=== PATIENT | male | born 1960 | race Hispanic/Latino ===

== ENCOUNTER 2025-02-17 06:42 | Observation (INO) | payer OTHER ==
[2025-02-15 10:22] LABS: IMMATURE GRANULOCYTE ABSOLUTE 0.02 K/uL (0-1); NUCLEATED RED BLOOD CELLS 0.0 % (0.0-0.19); PLATELET COUNT (AUTO) 328 K/uL (130-400); RED BLOOD CELL COUNT(AUTO) 4.17 MIL/uL (4.50-6.20); RED CELL DISTRIBUTION WIDTH 14.4 % (11.0-15.5); WHITE BLOOD COUNT (AUTO) 8.8 K/uL (4.8-10.8)
--- NOTE | 2025-02-15 10:29 | EKG ---
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
[2025-02-15 10:31] LABS: INR 1.0 (0.85-1.15)
[2025-02-15 10:34] LABS: CREATININE 0.9 mg/dL (0.5-1.3); GLOMERULAR FILTR. RATE CALC 97.0 mL/min (>90); GLUCOSE,RANDOM 99.0 mg/dL (70-105); SODIUM SERUM 139.0 mmol/L (136-145); UREA NITROGEN, BLOOD 14.0 mg/dL (7-18)
[2025-02-15 11:01] VITALS: BP 135/79; PULSE 76; RESP 18; TEMP 98
--- NOTE | 2025-02-16 04:15 | HMCIMG ---
EXAM: CR Chest, 2 views CLINICAL HISTORY: Preoperative evaluation. COMPARISON: None provided. FINDINGS: The lungs show no infiltrates or other acute findings. No pleural effusion or pneumothorax. The cardiomediastinal silhouette is within normal limits. Status poststernotomy. No acute osseous abnormality. IMPRESSION: No acute cardiopulmonary process is evident. /Lamar
[2025-02-17] VITALS (15 sets, daily range): BP systolic 128–166; BP diastolic 65–111; PULSE 64–77; RESP 14–18; TEMP 97.5–98.1; O2SAT 97
[~2025-02-17] VITALS: Ht 177.8 cm; Wt 152.0 kg
[~2025-02-17 06:42] MED LIST: ALLO100T PO; ASPI-1197 PO; ATOR40TA69 PO; ENAL-91 PO; EZET10TA48 PO; FURO20TA4 PO; METF-446 PO; METO-391 PO; OMEGA-3-ACID PO; TAMS-55 PO
[2025-02-17] MEDS ORDERED: LIDOCAINE HCL 400MG/20ML VIAL ONE ×2 (09:02→09:16)
[2025-02-17] MEDS ORDERED: SODIUM BICARB 50MEQ 50ML VIAL 0 ML ONE (09:02)
[2025-02-17] MEDS ORDERED: IOHEXOL 350 MG/ML 100ML INFUS..BTL IV ONE ×2 (09:03→11:13)
[2025-02-17] MEDS ORDERED: NITROGLYCERIN 50MG VIAL ONE (09:03)
[2025-02-17] MEDS ORDERED: HEParin-NS 1,000 UNIT/500 ML 1,000 ML IV ONE (09:03)
[2025-02-17] MEDS ORDERED: MIDAZOLAM HCL 1 MG/ML 2ML VIAL ONE (09:21)
[2025-02-17] MEDS: 0.9%NACL 1000ML 1,000 ML IV SCH ×2 (09:41→14:33)
[2025-02-17] MEDS ORDERED: BIVALIRUDIN 250 MG/VIAL IV ONE ×2 (11:09→11:18)
[2025-02-17] MEDS ORDERED: HEParin-NS 1,000 UNIT/500 ML 500 ML IV ONE (11:18)
[2025-02-17] MEDS ORDERED: ASPIRIN 81MG CHEW TAB ONE (12:05)
[2025-02-17] MEDS ORDERED: NITROGLYCERIN 0.4 MG SL TAB SL PRN ×2 (12:30→14:00)
[2025-02-17] MEDS ORDERED: DEXTROSE 50%-WATER 50 ML DISP.SYRIN IV PRN ×2 (12:30→14:00)
[2025-02-17] MEDS ORDERED: GLUCAGON 1MG KIT 1 MG ML IM PRN ×2 (12:30→14:00)
--- NOTE | 2025-02-17 12:38 | PRN ---
PROCEDURES: 1. Right common femoral arterial sheath placement. 2. Selective coronary angiogram. 3. Left heart catheterization. 4. Left ventriculogram. 5. Right common femoral vein sheath placement 6. Right heart catheterization falling protocol with cardiac outputs and O2 saturation run 7. Intravascular ultrasound of left main artery 8. Angioplasty to left main artery with the use of a 2.25 mm x 12 mm balloon 9. Lithotripsy angioplasty to left main artery with the use of a 3.5 mm x 12 mm balloon for a total of 12 treatments up to six atmospheres of the proximal and mid left main artery 10. Stent placement to proximal and mid left main artery with the use of a 5 mm x 12 mm julia [place] stent deployed to 5.25 mm 11. Perclose closure system for arteriotomy site and Vascade closure system for venous access site INDICATION: Unstable angina Moderate-severe aortic stenosis Abnormal stress test for multi zone ischemia History of coronary artery disease and a history of CABG x3 2015 with a dawson- lad, SVG-PDA, SVG-obtuse marginal branch three DESCRIPTION OF PROCEDURE: The patient was brought to the catheterization suite and prepped and draped in sterile fashion. IV was started, and not already in place and both groins were exposed for arterial access. 1% lidocaine was used for local anesthesia and then a micropuncture kit was used to gain access once free-flowing blood was seen, modified Seldinger technique was utilized to place a 6 [place] sheath into the right common femoral artery. Next the venous access was obtained using same technique and a seven [place] sheath was placed in the right common femoral vein. Next, preformed JL4 and JR 4 catheters were used to selectively engage the [place] coronary vessels and multiple hand contrast injections were performed in different views to define the coronary anatomy. The JR4 catheter was used to selectively engage the saphenous vein graft anastomosed to obtuse marginal branch 3. The JR4 catheter was then used to adequately image the left subclavian artery and then an exchange length J wire was then used to exchange catheters and an IMT catheter was then placed into the left subclavian artery and used to engage the left internal mammary artery. Next a multipurpose one catheter was then used to selectively engage the saphenous vein graft anastomosed into the PDA. Next a the end of the case, a 6 [place] angled pigtail was used to cross the aortic valve. Pressure measurements were obtained. Next a right heart catheterization was performed following foll owing protocol and O2 saturations were performed as well of the RA RV and PA. Cardiac outputs were also performed. Simultaneous pressure measurements were obtained of the LVEDP as well as a pulmonary capillary wedge. Next pullback method was done after a hand injection left ventriculogram was performed. Right heart catheter was removed as well. See below. FINDINGS: The left main artery bifurcates in the LAD and left circumflex and a severely calcified with a 95% proximal mid lesion noted. The LAD is occluded after a large long diagonal branch 1. Dawson-lad is noted to be patent. The left circumflex artery in his body gives rise to obtuse marginal branch one and two which are free of any significant disease. Obtuse marginal branch 3. Has a 50% proximal stenosis and the saphenous vein graft anastomosed into the obtuse marginal branch 3. Is providing retrograde filling non all the way to the aorta and upon engagement of saphenous vein graft off the aorta anastomosed into obtuse marginal branch 3. It occludes in its mid segment. It is diffusely diseased in its proximal segment. The right coronary artery and its proximal segment is 90% stenosed and occluded in its distal segment at 100%. The saphenous vein graft anastomosed into PDA is noted to be patent. INTERVENTIONAL REPORT: After images were reviewed a diagnostic study was completed it was felt intervention should be attempted to [place] left main artery. Therefore a six [place] JL4 catheter was then used to selectively engage the [place] coronary sy stem. Next a 0.014 in choice PT extra-support wire was then placed in distal ongoing diagonal branch 1. In its distal segment. Next a 2.25 mm balloon was then used to pre dilate the proximal and mid left main artery up to 2.49 mm. Next shockwave 3.5 mm x 12 mm balloon was then placed into the proximal and mid left main artery and deployed up to 3.4 mm or six atmospheres for a total of 12 treatments. Next intravascular ultrasound was performed of the left main artery revealing this to be at least a 5.25-5.50 mm vessel. Therefore a 5 mm x 12 mm julia [place] stent was then placed in the proximal and mid LAD inappropriate placement and location this was then deployed to 16 atmospheres for approximately 30 seconds or 5.25 mm. Follow-up contrast injection with no evidence of dissection or perforation just a little bit of residual stenosis of proximally 10% of the top of stent but with EMPERATRIZ three flow noted. At end of case sheaths were removed with a Perclose device removing arterial sheath and a Vascade closure system for venous sheath. No complications occurred. RECOMMENDATIONS: Patient will stay in the hospital overnight and receive IV fluids Discharge home in a.m. if labs remain normal Follow up with Dr. Vegas in 2-4 weeks BREANNA VEGAS MD Feb 17, 2025 12:38
--- NOTE | 2025-02-17 13:45 | NUR ---
REPORT GIVEN TO BALDEV RN 2ND FLOOR
[2025-02-17] MEDS ORDERED: PoTASSium chl 10% ELIXIR 20MEQ 20 MEQ/15 ML UDCUP PO PRN (14:00)
[2025-02-17] MEDS ORDERED: LACTULOSE 20 GM/30 ML UDCUP PO PRN (14:00)
[2025-02-17] MEDS ORDERED: FAMOTIDINE 20MG VIAL IV PRN (14:00)
[2025-02-17] MEDS ORDERED: PoTASSium chloRIDE 10MEQ SR 10 MEQ/TAB TAB.SR.24H PO PRN (14:00)
[2025-02-17] MEDS ORDERED: guaiFENesin-DM 200/20MG 10ML PO PRN (14:00)
[2025-02-17] MEDS ORDERED: MAG/ALUM/SIMETH 30 ML UDCUP PO PRN (14:00)
--- NOTE | 2025-02-17 14:09 | HP ---
[facility] HISTORY AND PHYSICAL Date of Service: Feb 17, 2025 Time of Service: 13:58 PCP:Dr Desmond Rodriguez cardiologidt Dr Ascencion Antonio Admitting:, Dr Boone, Allergies: No Allergy Information Available, No Known Drug Allergies HISTORY OF PRESENT ILLNESS: [ Patient is 64 years old male with a past medical history of hypertension, Coronary Artery Disease, CABG x3, venous insufficient can see, diabetes, morbid obesity, triple-vessel disease, HLD, right and left carotid endarterectomy, who came to [facility] for elective left heart catheterization with Dr. Vegas. Patient underwent right common femoral artery sheath placement, right common femoral vein sheath placement, angioplasty to the left main artery with the use of 2.25 mm x 12 mm balloon, lithotripsy angioplasty to the left main artery with the use of a 3.5 mm x 12 mm balloon for a total of 12 treatments up to six atmospheres of the proximal and mid left main artery. Stent placement to the proximal and mid left main artery with the use of a 5 mm x 12 mm julia [place] stent deployed to 5.25 mm and Perclose closure system for arteriotomy site and Vascade closure system for venous access site today 02/17/[address] Ascencion Antonio from [facility] . Most recent vital signs temperature 97.5 pulse 64 respiration 14 blood pressure 142/84 patient is on room air satting 97%. Sodium 139 potassium 4.6 CO2 25 BUN 14 creatinine 0.9 GFR 97. WBC 8.8 hemoglobin 12 hematocrit 36.8 platelets 328. Chest x-ray negative. Patient will be admitted under hospitalist care for further evaluation/recommendation. As per tanning wheel filler if no abnormalities over the night patient is cleared to be discharged home tomorrow. We will continue to follow up patient. A.m. labs] REVIEW OF SYSTEMS CONSTITUTIONAL: Denies fevers, chills, or night sweats. No unintentional weight loss reported. NEUROLOGICAL: Denies headache, amaurosis fugax, motor weakness, sensory deficit, vertigo/spinning sensation, gait abnormalities, or tremors. ENT: No hearing loss, otalgia, otorrhea, rhinitis, rhinorrhea, hoarseness, or sore throat. CARDIOVASCULAR: Denies any exertional angina, dyspnea on exertion, orthopnea, p aroxysmal nocturnal dyspnea, palpitations, life-threatening arrhythmias, claudication. S/p left heart catheterization 02/17/2025 PULMONARY: Denies any shortness of breath, cough, phlegm/sputum, hemoptysis, pleuritic chest pain. SLEEP: Denies morning headaches, daytime somnolence or napping. Denies difficulty falling asleep, staying asleep, waking from sleep. Denies knowledge of snoring. GASTROINTESTINAL: Denies any type of dysphagia to either liquids or solids. Denies nausea, vomiting, pyrosis, early satiety, abdominal pain, diarrhea, co nstipation, or changes in stool consistency or caliber. Denies coffee-ground emesis, hematemesis, hematochezia, or melanotic stools. GENITOURINARY: Denies frequency, urgency, nocturia, hematuria or incontinence (Storage/Irritative symptoms.) Low urinary stream, straining to void, urinary intermittency or hesitancy, splitting of the voiding stream, terminal dribbling. ENDOCRINOLOGIC: Denies polyuria, polydipsia, polyphagia or heat/cold intolerances. HEMATOLOGIC: Denies thrombophilia/previous clots, or coagulopathy/bleeding disorders. ONCOLOGIC: Denies personal history of malignancy. DERMATOLOGIC: Denies rashes or pruritus. PSYCHIATRIC: Denies any suicidal or homicidal ideation. Denies hallucinations. PAST MEDICAL HISTORY: [ Hypertension, Coronary Artery Disease, venous insufficiency, diabetes, morbid obesity, triple-vessel disease, CHF] PAST SURGICAL HISTORY: [ CABG x3 2016, left and right carotid endarterectomy 2017 and 2016, right and left knee replacement ] PAST SOCIAL HISTORY: [ Patient quit smoking in 2016, patient quit drinking about four months ago he used to drinking to three beers every weekend. Patient denies any drug illicit ] FAMILY HISTORY: [ Patient lives at home with a girlfriend independent] Coded Allergies: No Known Drug Allergies (Unverified Allergy, Unknown, 02/17/25) PHYSICAL EXAM GENERAL APPEARANCE: The patient is awake, alert, and oriented, in no acute cardiopulmonary distress. NEUROLOGICAL: Cranial nerves II-XII grossly intact. Motor is 5/5 in bilateral upper and lower extremities proximal to distal. No sensory deficits. HEENT: Face is symmetric. Pupils are equal and reactive. Extraocular movements are intact. NECK: Supple. No JVD. No thyromegaly. No submental, submandibular, pre- /postauricular, occipital or supraclavicular lymphadenopathy. CHEST: Normal chest expansion. No Telemetry. LUNGS: Absence of any rales, rhonchi or any wheezing. CARDIOVASCULAR: Regular. S1 and S2 normal. No appreciable rubs, murmurs or gallops. ABDOMEN: Soft, nontender, and nondistended. There is no rebound, voluntary guarding, or rigidity. : Deferred. No Galaviz. EXTREMITIES: Non-edematous and not cyanotic. No clubbing. Good capillary refill. SKIN: No skin breakdown. Vital Sign (Last 24 Hours) 02/17/25 13:45 Pulse 67 Resp 14 B/P (MAP) 147/87 Pulse Ox 96 O2 Delivery Room Air FiO2 21 LABS: Laboratory: Test 02/17/25 06:54 Range/Units Whole Blood Glucose 100 70-110 MG/DL Current Medications Medications (Trade) Dose Ordered Sig/Johnny Route PRN Reason Start Time Stop Time Status Last Admin Dose Admin Dextrose (D50w) 50 ml AD PRN IV HYPOGLYCEMIA PROTOCOL 02/17/25 12:30 03/19/25 12:29 Dextrose (D50w) 50 ml AD PRN IV HYPOGLYCEMIA PROTOCOL 02/17/25 14:00 02/17/25 13:56 DC Glucagon (Glucagon 1mg Kit) 1 mg AD PRN IM HYPOGLYCEMIA PROTOCOL 02/17/25 12:30 03/19/25 12:29 Glucagon (Glucagon 1mg Kit) 1 mg AD PRN IM HYPOGLYCEMIA PROTOCOL 02/17/25 14:00 02/17/25 13:56 DC Hydralazine HCl (APRESOLine 20MG INJ) 10 mg Q20M PRN IV SBP ABOVE 160MMHG 02/17/25 12:30 03/19/25 12:29 Insulin Human Regular (humuLIN R 100 UNIT/ML 3ML) INSULIN SLIDING SCAL... ACHS SQ 02/17/25 16:30 02/17/25 13:56 DC Insulin Human Regular (humuLIN R 100 UNIT/ML 3ML) INSULIN SLIDING SCAL... ACHS SQ 02/17/25 16:30 03/19/25 16:29 Magnesium Sulfate 50 ml @ 0 mls/hr PROTOCOL PRN IV other 02/17/25 14:00 03/19/25 13:59 Metoprolol Tartrate (loprESSOR) 5 mg Q5M PRN IV Heart rate greater than 110 02/17/25 12:30 Nitroglycerin (Nitrostat) 0.4 mg AD PRN SL CHEST PAIN 02/17/25 12:30 03/19/25 12:29 Potassium Chloride 100 ml @ 100 mls/hr AD PRN IV POTASSIUM PROTOCOL 02/17/25 14:00 03/19/25 13:59 Potassium Chloride (K-Dur 10meq Sr Tab) 10 meq AD PRN PO POTASSIUM PROTOCOL 02/17/25 14:00 03/19/25 13:59 Potassium Chloride (KCl 10% Elixir 20meq/15ml) 10 meq AD PRN PO POTASSIUM PROTOCOL 02/17/25 14:00 03/19/25 13:59 Sodium Chloride 1,000 ml @ 0 mls/hr Q0M IV 02/17/25 10:00 03/19/25 09:59 02/17/25 09:41 30 MLS/HR Sodium Chloride 1,000 ml @ 100 mls/hr Q10H IV 02/17/25 12:30 02/17/25 18:29 Ticagrelor (BRILinta) 90 mg BID PO 02/17/25 21:00 03/19/25 20:59 DIAGNOSTICS / RADIOLOGY: [ ] ASSESSMENT: [ Left main artery bifurcates in the LAD and left circumflex and severely calcified with 95% proximal mid lesion POA LAD occluded POA Right carotid artery 90% stenosis and occluded and that is distal segment at 100% POA s/p left heart catheterization 02/16/[address] Vegas s/p right common femoral artery sheath placement s/p left ventricular g s/p right common femoral vein sheath placement s/p Angioplasty to left main artery with the use of a 2.25 mm x 12 mm balloon ] s/pLithotripsy angioplasty to left main artery with the use of a 3.5 mm x 12 mm balloon for a total of 12 treatments up to six atmospheres of the proximal and mid left main artery s/p Stent placement to proximal and mid left main artery with the use of a 5 mm x 12 mm julia [place] stent deployed to 5.25 mm PLAN: [ Admit to [facility] s/p left heart catheterization with Dr. Vegas 02/17/2025 Anticipated discharge within 24 hours Home medications reconciled by SOFTWARE TEAM LEADER 02/17/2025 cardiac home medications to be reconciled as per tanning wheel filler] A.m. labs Chest x-ray negative Hyper and hypoglycemia protocol Hyper or hypo glycemia protocol Hypomagnesemia protocol I's and O's Tele monitoring Blood culture afebrile PRN medications ordered Cardiology consultation Heart healthy diet ADVANCED CARE PLANNING 1. Which of the following were discussed? Hospice Care - Yes / No Therapeutic options - Yes / No Advance Directives - Yes / No Other discussions - 2. Discussed with who? Patient and girlfriend at the bedside 3. Voluntary nature of this service was explained to the patient? Yes / No 4. Amount of time spent - __ more than 35 minutes 5. Reviewed by Physician? (if this service was performed by NPP) Yes / No ATTESTATION BY PHYSICIAN I have seen and examined the patient. I reviewed the documentation, medical decision making, and treatment plan as noted by the mid-level provider above. I agree with the findings and plan of care. YOGI BOONE MD, KATARZYNA B LOG OPERATIONS COORDINATOR Feb 17, 2025 14:09
[2025-02-17] MEDS: FAMOTIDINE 20MG VIAL IV SCH (21:29)
[2025-02-17] MEDS: FISH OIL 1000 MG/CAP PO SCH (21:32)
[2025-02-18 00:03] VITALS: BP 151/90; PULSE 65; RESP 18; TEMP 98
[2025-02-18 03:44] LABS: IMMATURE GRANULOCYTE ABSOLUTE 0.04 K/uL (0-1); NUCLEATED RED BLOOD CELLS 0.0 % (0.0-0.19); PLATELET COUNT (AUTO) 301 K/uL (130-400); RED BLOOD CELL COUNT(AUTO) 4.19 MIL/uL (4.50-6.20); RED CELL DISTRIBUTION WIDTH 14.2 % (11.0-15.5); WHITE BLOOD COUNT (AUTO) 10.5 K/uL (4.8-10.8)
[2025-02-18 04:11] VITALS: BP 127/80; PULSE 72; RESP 18; TEMP 98.7
[2025-02-18 04:11] LABS: CREATININE 1.0 mg/dL (0.5-1.3); SODIUM SERUM 139.0 mmol/L (136-145)
[2025-02-18 04:12] LABS: ASPARTATE AMINOTRANSFERASE 30.0 U/L (10-37); CREATINE KINASE, TOTAL 102.0 U/L (21-232); GLOMERULAR FILTR. RATE CALC 85.0 mL/min (>90); TOTAL PROTEIN, SERUM 6.8 g/dL (6.0-8.3)
[2025-02-18 04:21] LABS: GLUCOSE,RANDOM 140.0 mg/dL (70-105); UREA NITROGEN, BLOOD 12.0 mg/dL (7-18)
[2025-02-18 08:00] VITALS: O2SAT 97
[2025-02-18 08:22] VITALS: BP 139/78; PULSE 66; RESP 18; TEMP 97.6
[2025-02-18] MEDS: ASPIRIN 81MG CHEW TAB PO SCH (09:19)
[2025-02-18] MEDS: MAGNESIUM 2GM PREMIX 50ML 50 ML IV PRN (09:20)
--- NOTE | 2025-02-18 09:43 | PN ---
CATALYST PROGRESS NOTE Date of Service: Feb 18, 2025 Time of Service: 09:41 SUBJECTIVE: Patient is 64 years old male with a past medical history of hypertension, Coronary Artery Disease, CABG x3, venous insufficient can see, diabetes, morbid obesity, triple-vessel disease, HLD, right and left carotid endarterectomy, who came to [facility] for elective left heart catheterization with Dr. Vegas. Patient underwent right common femoral artery sheath placement, right common femoral vein sheath placement, angioplasty to the left main artery with the use of 2.25 mm x 12 mm balloon, lithotripsy angioplasty to the left main artery with the use of a 3.5 mm x 12 mm balloon for a total of 12 treatments up to six atmospheres of the proximal and mid left main artery. Stent placement to the proximal and mid left main artery with the use of a 5 mm x 12 mm julia Chenango stent deployed to 5.25 mm and Perclose closure system for arteriotomy site and Vascade closure system for venous access site 02/17/[address] Ascencion Antonio from [facility] . 02/18 blood pressure 139/78, rest of vital signs unremarkable. Blood work with a hemoglobin 12.1, hematocrit 36.9, WBC 10.5, platelet count of 301. Sodium 139, potassium 3.9, BUN of 12, creatinine 1.0, random glucose 140, magnesium 1.3. During my visit patient comfortably in bed, eating lunch, tolerating well, denied chest pain, no shortness a breath, no nausea, no vomiting, no abdominal discomfort. Just finished replacement of magnesium sulfate with 2 g IV x1, we will recheck magnesium level, if within the normal range plan for the patient to be discharged home today. Discussed with the patient and the at bedside, both in agreement. REVIEW OF SYSTEMS CONSTITUTIONAL: Denies fevers, chills, or night sweats. No unintentional weight loss reported. NEUROLOGICAL: Denies headache, amaurosis fugax, motor weakness, sensory deficit, vertigo/spinning sensation, gait abnormalities, or tremors. ENT: No hearing loss, otalgia, otorrhea, rhinitis, rhinorrhea, hoarseness, or sore throat. CARDIOVASCULAR: Denies any exertional angina, dyspnea on exertion, orthopnea, paroxysmal nocturnal dyspnea, palpitations, life-threatening arrhythmias, claudication. S/p left heart catheterization 02/17/2025 PULMONARY: Denies any shortness of breath, cough, phlegm/sputum, hemoptysis, pleuritic chest pain. SLEEP: Denies morning headaches, daytime somnolence or napping. Denies difficulty falling asleep, staying asleep, waking from sleep. Denies knowledge of snoring. GASTROINTESTINAL: Denies any type of dysphagia to either liquids or solids. Denies nausea, vomiting, pyrosis, early satiety, abdominal pain, diarrhea, constipation, or changes in stool consistency or caliber. Denies coffee-ground emesis, hematemesis, hematochezia, or melanotic stools. GENITOURINARY: Denies frequency, urgency, nocturia, hematuria or incontinence (Storage/Irritative symptoms.) Low urinary stream, straining to void, urinary intermittency or hesitancy, splitting of the voiding stream, terminal dribbling. ENDOCRINOLOGIC: Denies polyuria, polydipsia, polyphagia or heat/cold intolerances. HEMATOLOGIC: Denies thrombophilia/previous clots, or coagulopathy/bleeding disorders. ONCOLOGIC: Denies personal history of malignancy. DERMATOLOGIC: Denies rashes or pruritus. PSYCHIATRIC: Denies any suicidal or homicidal ideation. Denies hallucinations. PHYSICAL EXAM GENERAL APPEARANCE: The patient is awake, alert, and oriented, in no acute cardiopulmonary distress. NEUROLOGICAL: Cranial nerves II-XII grossly intact. Motor is 5/5 in bilateral upper and lower extremities proximal to distal. No sensory deficits. HEENT: Face is symmetric. Pupils are equal and reactive. Extraocular movements are intact. NECK: Supple. No JVD. No thyromegaly. No submental, submandibular, pre- /postauricular, occipital or supraclavicular lymphadenopathy. CHEST: Normal chest expansion. No Telemetry. LUNGS: Absence of any rales, rhonchi or any wheezing. CARDIOVASCULAR: Regular. S1 and S2 normal. No appreciable rubs, murmurs or gallops. ABDOMEN: Soft, nontender, and nondistended. There is no rebound, voluntary guarding, or rigidity. : Deferred. No Galaviz. EXTREMITIES: Non-edematous and not cyanotic. No clubbing. Good capillary refill. SKIN: No skin breakdown. Vital Signs (last 8hr) Date Time Temp Pulse Resp B/P (MAP) Pulse Ox O2 Delivery O2 Flow Rate FiO2 02/18/25 08:22 97.5 66 18 139/78 96 Room Air 02/18/25 04:11 98.8 72 18 127/80 97 Room Air LABS: Laboratory: Test 02/18/25 05:19 02/18/25 03:29 Range/Units Whole Blood Glucose 127 H 70-110 MG/DL White Blood Count 10.5 4.8-10.8 K/uL Red Blood Count 4.19 L 4.50-6.20 MIL/uL Hemoglobin 12.1 L 14.0-18.0 g/dL Hematocrit 36.9 L 42-54 % Mean Corpuscular Volume 88.1 79-99 fL Mean Corpuscular Hemoglobin 28.9 27.0-33.0 pg Mean Corpuscular Hemoglobin Concent 32.8 32.0-36.0 g/dL Red Cell Distribution Width 14.2 11.0-15.5 % Platelet Count 301 130-400 K/uL Mean Platelet Volume 10.1 7.5-10.5 fL Immature Granulocyte % (Auto) 0.4 0-1 % Neutrophils (%) (Auto) 78.7 H 40.0-77.0 % Lymphocytes (%) (Auto) 11.1 L 21.0-51.0 % Monocytes (%) (Auto) 8.4 3.0-13.0 % Eosinophils (%) (Auto) 1.1 0.0-8.0 % Basophils (%) (Auto) 0.3 0.0-5.0 % Neutrophils # (Auto) 8.3 H 1.8-7.7 K/uL Lymphocytes # (Auto) 1.2 1.0-4.8 K/uL Monocytes # (Auto) 0.9 0.1-1.0 K/uL Eosinophils # (Auto) 0.12 0.00-0.70 K/uL Basophils # (Auto) 0.03 0.00-0.20 K/uL Absolute Immature Granulocyte (auto 0.04 0-1 K/uL Nucleated Red Blood Cells 0.0 0.0-0.19 % Sodium Level 139 136-145 mmol/L Potassium Level 3.9 3.5-5.1 mmol/L Chloride Level 103 101-111 mmol/L Carbon Dioxide Level 26 21-32 mmol/L Blood Urea Nitrogen 12 7-18 mg/dL Creatinine 1.0 0.5-1.3 mg/dL Glomerular Filtration Rate Calc 85 >90 mL/min Random Glucose 140 H 70-105 mg/dL Hemoglobin A1c 6.3 H 4.0-6.0 % Estimated Average Glucose (eAG) 134 H 70-126 mg/dL Lactic Acid Level 1.3 0.8-2.5 mmol/L Total Calcium 9.4 8.5-10.1 mg/dL Magnesium Level 1.30 L 1.80-2.40 mg/dL Total Bilirubin 1.1 H 0.2-1.0 mg/dL Direct Bilirubin 0.3 0.0-0.3 mg/dL Aspartate Amino Transf (AST/SGOT) 30 10-37 U/L Alanine Aminotransferase (ALT/SGPT) 56 12-78 U/L Alkaline Phosphatase 79 50-136 U/L Ammonia 13 11-32 umol/L Total Creatine Kinase 102 21-232 U/L B-Type Natriuretic Peptide 384 H 0-100 pg/mL Total Protein 6.8 6.0-8.3 g/dL Albumin 3.7 3.5-5.0 g/dL Amylase Level 28 25-115 U/L Procalcitonin < 0.05 L 0.05-0.5 ng/mL Current Medications Medications (Trade) Dose Ordered Sig/Johnny Route PRN Reason Start Time Stop Time Status Last Admin Dose Admin Acetaminophen (TYLenol 325MG TAB) 650 mg Q4H PRN PO MILD PAIN (1-3) 02/17/25 14:00 03/19/25 13:59 Acetaminophen (TYLenol 325MG TAB) 650 mg Q6H PRN PO MILD PAIN (1-3) 02/17/25 14:00 02/17/25 13:59 DC Acetaminophen (TYLenol 325MG TAB) 650 mg Q6H PRN PO TEMPERATURE GREATER THAN 101.5 02/17/25 14:00 03/19/25 13:59 Al Hydroxide/Mg Hydroxide (MAALox PLUS 30ML) 30 ml Q6H PRN PO INDIGESTION 02/17/25 14:00 03/19/25 13:59 Allopurinol (ZYLOprim 100MG) 100 mg BID PO 02/17/25 21:00 03/19/25 20:59 02/18/25 09:19 100 MG Aspirin (Aspirin 81mg Chew Tab) 81 mg AM PO 02/18/25 09:00 03/20/25 08:59 02/18/25 09:19 81 MG Atorvastatin Calcium (LIPItor 40MG) 80 mg PM PO 02/17/25 21:00 03/19/25 20:59 02/17/25 21:32 80 MG Dextrose (D50w) 50 ml AD PRN IV HYPOGLYCEMIA PROTOCOL 02/17/25 12:30 03/19/25 12:29 Dextrose (D50w) 50 ml AD PRN IV HYPOGLYCEMIA PROTOCOL 02/17/25 14:00 02/17/25 13:56 DC Diphenhydramine HCl (BENAdryl INJ) 25 mg Q6H PRN IV SEVERE ITCHING/RASH 02/17/25 14:00 03/19/25 13:59 Famotidine (Pepcid 20mg Vial) 20 mg BID IV 02/17/25 21:00 03/19/25 20:59 02/18/25 09:19 20 MG Famotidine (Pepcid 20mg Vial) 20 mg BID PRN IV NAUSEA/VOMITING 02/17/25 14:00 02/17/25 13:59 DC Fish Oil (Fish Oil 1000 Mg/Cap) 1,000 mg BID PO 02/17/25 21:00 03/19/25 20:59 02/18/25 09:19 1,000 MG Glucagon (Glucagon 1mg Kit) 1 mg AD PRN IM HYPOGLYCEMIA PROTOCOL 02/17/25 12:30 03/19/25 12:29 Glucagon (Glucagon 1mg Kit) 1 mg AD PRN IM HYPOGLYCEMIA PROTOCOL 02/17/25 14:00 02/17/25 13:56 DC Guaifenesin/ Dextromethorphan (RobiTUSSin DM 200/20MG 10ML) 10 ml Q4H PRN PO COUGH 02/17/25 14:00 03/19/25 13:59 Hydralazine HCl (APRESOLine 20MG INJ) 10 mg Q20M PRN IV SBP ABOVE 160MMHG 02/17/25 12:30 03/19/25 12:29 Hydralazine HCl (APRESOLine 20MG INJ) 10 mg Q6H PRN IV For:SBP above 160;DBP above 90 02/17/25 14:00 02/17/25 13:59 DC Insulin Human Regular (humuLIN R 100 UNIT/ML 3ML) INSULIN SLIDING SCAL... ACHS SQ 02/17/25 16:30 02/17/25 13:56 DC Insulin Human Regular (humuLIN R 100 UNIT/ML 3ML) INSULIN SLIDING SCAL... ACHS SQ 02/17/25 16:30 03/19/25 16:29 Ketorolac Tromethamine (toRADol) 15 mg Q8H PRN IV MODERATE PAIN (4-6) 02/17/25 14:00 02/22/25 13:59 Lactulose (Constulose 20gm/ 30ml Udcup) 20 gm BID PRN PO CONSTIPATION 02/17/25 14:00 03/19/25 13:59 Magnesium Sulfate 50 ml @ 0 mls/hr PROTOCOL PRN IV other 02/17/25 14:00 03/19/25 13:59 02/18/25 09:20 25 MLS/HR Metoprolol Tartrate (loprESSOR) 5 mg Q5M PRN IV Heart rate greater than 110 02/17/25 12:30 Morphine Sulfate (morPHINE 2MG SYG) 1 mg Q4H PRN IVP SEVERE PAIN (7-10) 02/17/25 14:00 02/24/25 13:59 Nitroglycerin (Nitrostat) 0.4 mg AD PRN SL CHEST PAIN 02/17/25 12:30 03/19/25 12:29 Nitroglycerin (Nitrostat) 0.4 mg PROTOCOL PRN SL CHEST PAIN 02/17/25 14:00 02/17/25 14:09 DC Ondansetron HCl (zoFRAN 4MG INJ) 4 mg Q6H PRN IV NAUSEA/VOMITING 02/17/25 14:00 03/19/25 13:59 Potassium Chloride 100 ml @ 100 mls/hr AD PRN IV POTASSIUM PROTOCOL 02/17/25 14:00 03/19/25 13:59 Potassium Chloride (K-Dur 10meq Sr Tab) 10 meq AD PRN PO POTASSIUM PROTOCOL 02/17/25 14:00 03/19/25 13:59 Potassium Chloride (KCl 10% Elixir 20meq/15ml) 10 meq AD PRN PO POTASSIUM PROTOCOL 02/17/25 14:00 03/19/25 13:59 Sodium Chloride 1,000 ml @ 0 mls/hr Q0M IV 02/17/25 10:00 02/17/25 14:34 DC 02/17/25 09:41 30 MLS/HR Sodium Chloride 1,000 ml @ 100 mls/hr Q10H IV 02/17/25 12:30 02/17/25 18:29 DC 02/17/25 14:33 100 MLS/HR Tamsulosin HCl (FloMAX) 0.4 mg PM PO 02/17/25 21:00 03/19/25 20:59 02/17/25 21:32 0.4 MG Ticagrelor (BRILinta) 90 mg BID PO 02/17/25 21:00 03/19/25 20:59 02/18/25 09:20 90 MG Zolpidem Tartrate (AmbIEN) 5 mg HS PRN PO INSOMNIA 02/17/25 14:00 03/19/25 13:59 DIAGNOSTICS / RADIOLOGY: [ ] ASSESSMENT: [ Left main artery bifurcates in the LAD and left circumflex and severely calcified with 95% proximal mid lesion POA LAD occluded POA Right carotid artery 90% stenosis and occluded and that is distal segment at 10 0% POA s/p left heart catheterization 02/16/[address] Vegas s/p right common femoral artery sheath placement s/p left ventricular g s/p right common femoral vein sheath placement s/p Angioplasty to left main artery with the use of a 2.25 mm x 12 mm balloon ] s/pLithotripsy angioplasty to left main artery with the use of a 3.5 mm x 12 mm balloon for a total of 12 treatments up to six atmospheres of the proximal and mid left main artery s/p Stent placement to proximal and mid left main artery with the use of a 5 mm x 12 mm julia Chenango stent deployed to 5.25 mm PLAN: Admit to [facility] s/p left heart catheterization with Dr. Vegas 02/17/2025 Anticipated discharge home today, we will follow Cardiology recommendations. Home medications reconciled by HOME THEATRE TECHNICIAN 02/17/2025 A.m. labs Chest x-ray negative Hyper and hypoglycemia protocol Hyper or hypo glycemia protocol Hypomagnesemia protocol I's and O's Tele monitoring Blood culture afebrile PRN medications ordered Cardiology consultation Heart healthy diet Plan of action discussed, all questions answered. YOGI BLACKMON MD Feb 18, 2025 09:43
[2025-02-18] MEDS ORDERED: MAGNESIUM 2GM PREMIX 50ML 50 ML IV SCH (10:00)
[2025-02-18 12:03] VITALS: BP 137/72; PULSE 72; RESP 18; TEMP 97.8
--- NOTE | 2025-02-18 12:24 | DS ---
Discharge Summary Hospital Course Summary: Patient is 64 years old male with a past medical history of hypertension, Coronary Artery Disease, CABG x3, venous insufficient can see, diabetes, morbid obesity, triple-vessel disease, HLD, right and left carotid endarterectomy, who came to [facility] for elective left heart catheterization with Dr. Vegas. Patient underwent right common femoral artery sheath placement, right common femoral vein sheath placement, angioplasty to the left main artery with the use of 2.25 mm x 12 mm balloon, lithotripsy angioplasty to the left main artery with the use of a 3.5 mm x 12 mm balloon for a total of 12 treatments up to six atmospheres of the proximal and mid left main artery. Stent placement to the proximal and mid left main artery with the use of a 5 mm x 12 mm julia Butler stent deployed to 5.25 mm and Perclose closure system for arteriotomy site and Vascade closure system for venous access site 02/17/[address] Ascencion Antonio from [facility] . 02/18 blood pressure 139/78, rest of vital signs unremarkable. Blood work with a hemoglobin 12.1, hematocrit 36.9, WBC 10.5, platelet count of 301. Sodium 139, potassium 3.9, BUN of 12, creatinine 1.0, random glucose 140, magnesium 1.3. Patient to be discharge home today if magnesium level within the normal range after replacement. PHYSICAL EXAM GENERAL APPEARANCE: The patient is awake, alert, and oriented, in no acute cardiopulmonary distress. NEUROLOGICAL: Cranial nerves II-XII grossly intact. Motor is 5/5 in bilateral upper and lower extremities proximal to distal. No sensory deficits. HEENT: Face is symmetric. Pupils are equal and reactive. Extraocular movements are intact. NECK: Supple. No JVD. No thyromegaly. No submental, submandibular, pre- /postauricular, occipital or supraclavicular lymphadenopathy. CHEST: Normal chest expansion. No Telemetry. LUNGS: Absence of any rales, rhonchi or any wheezing. CARDIOVASCULAR: Regular. S1 and S2 normal. No appreciable rubs, murmurs or gallops. ABDOMEN: Soft, nontender, and nondistended. There is no rebound, voluntary guarding, or rigidity. : Deferred. No Galaviz. EXTREMITIES: Non-edematous and not cyanotic. No clubbing. Good capillary refill. SKIN: No skin breakdown. 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 Right common femoral arterial sheath placement. 2. Selective coronary angiogram. 3. Left heart catheterization. 4. Left ventriculogram. 5. Right common femoral vein sheath placement 6. Right heart catheterization falling protocol with cardiac outputs and O2 saturation run 7. Intravascular ultrasound of left main artery 8. Angioplasty to left main artery with the use of a 2.25 mm x 12 mm balloon 9. Lithotripsy angioplasty to left main artery with the use of a 3.5 mm x 12 mm balloon for a total of 12 treatments up to six atmospheres of the proximal and mid left main artery 10. Stent placement to proximal and mid left main artery with the use of a 5 mm x 12 mm julia Butler stent deployed to 5.25 mm 11. Perclose closure system for arteriotomy site and Vascade closure system for venous access site INDICATION: Unstable angina Moderate-severe aortic stenosis Abnormal stress test for multi zone ischemia History of coronary artery disease and a history of CABG x3 2015 with a dawson- lad, SVG-PDA, SVG-obtuse marginal branch three DESCRIPTION OF PROCEDURE: The patient was brought to the catheterization suite a nd prepped and draped in sterile fashion. IV was started, and not already in place and both groins were exposed for arterial access. 1% lidocaine was used for local anesthesia and then a micropuncture kit was used to gain access once free-flowing blood was seen, modified Seldinger technique was utilized to place a 6 Algerian sheath into the right common femoral artery. Next the venous access was obtained using same technique and a seven Algerian sheath was placed in the right common femoral vein. Next, preformed JL4 and JR 4 catheters were used to selectively engage the sitka coronary vessels and multiple hand contrast injections were performed in different views to define the coronary anatomy. The JR4 catheter was used to selectively engage the saphenous vein graft anastomosed to obtuse marginal branch 3. The JR4 catheter was then used to adequately image the left subclavian artery and then an exchange length J wire was then used to exchange catheters and an IMT catheter was then placed into the left subclavian artery and used to engage the left internal mammary artery. Next a multipurpose one catheter was then used to selectively engage the saphenous vein graft anastomosed into the PDA. Next a the end of the case, a 6 Algerian angled pigtail was used to cross the aortic valve. Pressure measurements were obtained. Next a right heart catheterization was performed following following protocol and O2 saturations were performed as well of the RA RV and PA. Cardiac outputs were also performed. Simultaneous pressure measurements were obtained of the LVEDP as well as a pulmonary capillary wedge. Next pullback method was done after a hand injection left ventriculogram was performed. Right heart catheter was removed as well. See below. FINDINGS: The left main artery bifurcates in the LAD and left circumflex and a severely calcified with a 95% proximal mid lesion noted. The LAD is occluded after a large long diagonal branch 1. Dawson-lad is noted to be patent. The left circumflex artery in his body gives rise to obtuse marginal branch one and two which are free of any significant disease. Obtuse marginal branch 3. Has a 50% proximal stenosis and the saphenous vein graft anastomosed into the obtuse marginal branch 3. Is providing retrograde filling non all the way to the aorta and upon engagement of saphenous vein graft off the aorta anastomosed into obtuse marginal branch 3. It occludes in its mid segment. It is diffusely diseased in its proximal segment. The right coronary artery and its proximal segment is 90% stenosed and occluded in its distal segment at 100%. The saphenous vein graft anastomosed into PDA is noted to be patent. INTERVENTIONAL REPORT: After images were reviewed a diagnostic study was completed it was felt intervention should be attempted to sitka left main artery. Therefore a six Algerian JL4 catheter was then used to selectively engage the sitka coronary system. Next a 0.014 in choice PT extra-support wire was then placed in distal ongoing diagonal branch 1. In its distal segment. Next a 2.25 mm balloon was then used to pre dilate the proximal and mid left main artery up to 2.49 mm. Next shockwave 3.5 mm x 12 mm balloon was then placed into the proximal and mid left main artery and deployed up to 3.4 mm or six atmospheres for a total of 12 treatments. Next intravascular ultrasound was performed of the left main artery revealing this to be at least a 5.25-5.50 mm vessel. Therefore a 5 mm x 12 mm julia Butler stent was then placed in the proximal and mid LAD inappropriate placement and location this was then deployed to 16 atmospheres for approximately 30 seconds or 5.25 mm. Follow-up contrast injection with no evidence of dissection or perforation just a little bit of residual stenosis of proximally 10% of the top of stent but with EMPERATRIZ three flow noted. At end of case sheaths were removed with a Perclose device removing arterial sheath and a Vascade closure system for venous sheath. No complications occurred. RECOMMENDATIONS: Patient will stay in the hospital overnight and receive IV fluids Discharge home in a.m. if labs remain normal Follow up with Dr. Vegas in 2-4 weeks Assessment/Plan: Final diagnosis Left main artery bifurcates in the LAD and left circumflex and severely calc ified with 95% proximal mid lesion POA LAD occluded POA Right carotid artery 90% stenosis and occluded and that is distal segment at 100% POA s/p left heart catheterization 02/16/[address] Vegas s/p right common femoral artery sheath placement s/p left ventricular g s/p right common femoral vein sheath placement s/p Angioplasty to left main artery with the use of a 2.25 mm x 12 mm balloon ] s/pLithotripsy angioplasty to left main artery with the use of a 3.5 mm x 12 mm balloon for a total of 12 treatments up to six atmospheres of the proximal and mid left main artery s/p Stent placement to proximal and mid left main artery with the use of a 5 mm x 12 mm julia Butler stent deployed to 5.25 mm Discharge Instructions: The patient to be discharged home today, to follow up with primary care physician as well as bread dumper as an outpatient and to return to the hospital if his condition changes, patient alert oriented x3, agreed and understood the information provided as well as the was in the room at the time of my visit. Home Medications: Reported Medications Atorvastatin Calcium (LIPITOR) 80 Mg Tablet, 80 MG PO PM, TAB 02/15/25 Ezetimibe (Ezetimibe) 10 Mg Tablet, 10 MG PO PM, TAB 02/15/25 Tamsulosin HCl (Flomax) 0.4 Mg Cap.er.24h, 0.4 MG PO PM, CAPSULE.DR 02/15/25 Allopurinol (Allopurinol) 100 Mg Tablet, 100 MG PO BID, TAB 02/15/25 [[id number] ] No Conflict Check, 1 G PO BID 02/15/25 Metformin HCl (Metformin HCl) 1,000 Mg Tablet, 1000 MG PO BID, TAB 02/15/25 Aspirin (Aspirin) 81 Mg Tab.chew, 81 MG PO AM, TAB.CHEW 02/15/25 Enalapril Maleate (Enalapril Maleate) 20 Mg Tablet, 20 MG PO BID, TAB 02/15/25 Metoprolol Succinate (Metoprolol Succinate) 50 Mg Tab.er.24h, 50 MG PO BID, TAB 02/15/25 Furosemide (Furosemide) 20 Mg Tablet, 20 MG PO AM, TAB 02/15/25 Time spent arranging discharge: 31-60 minutes YOGI BLACKMON MD Feb 18, 2025 12:24
[2025-02-18] MEDS ORDERED: NITR0.4T50 SL (12:25)
--- NOTE | 2025-02-18 14:20 | NUR ---
DISCHARGE INSTRUCTIONS WERE GIVEN TO THIS PATIENT AND EDUCATION WAS PROVIDED ON NEW MEDICATIONS. PIV TO LEFT ANTECUBITAL WAS REMOVED WITH CATHETER INTACT AND DRY DRESSING APPLIED. STENT CARD WAS PROVIDED. FOLLOW UP APPT DATE AND TIMES WERE PROVIDED WELL. PATIENT WAS TAKEN DOWN TO PRIVATE VEHICLE VIA WHEEL CHAIR.
--- NOTE | 2025-02-18 16:50 | NUR ---
Pt DC home today prior to PT eval
== END 2025-02-18 14:20 | disposition home or self-care (01) ==
LOC: DAH 06:42 → DAHIP 06:43 → DAH 06:43 → 2DH 14:15
PROVIDERS: ADMIT Internal Medicine; ATTEND Internal Medicine
DX: I25.110 Atherosclerotic heart disease of native coronary artery with unstable angina pectoris (principal); I35.0 Nonrheumatic aortic (valve) stenosis; E66.01 Morbid (severe) obesity due to excess calories; E11.9 Type 2 diabetes mellitus without complications; E78.5 Hyperlipidemia, unspecified; I11.0 Hypertensive heart disease with heart failure; I50.9 Heart failure, unspecified; I87.2 Venous insufficiency (chronic) (peripheral); R94.39 Abnormal result of other cardiovascular function study; Z87.891 Personal history of nicotine dependence; Z95.1 Presence of aortocoronary bypass graft; Z96.653 Presence of artificial knee joint, bilateral; Z68.42 Body mass index [BMI] 45.0-49.9, adult
CPT/HCPCS: 80048 ×2; 85025 ×2; 85610; 85730; 36415 ×2; 71045; 93005; 92978; 92972; 93461; 99156; 99157 ×5; 96374; 96375 ×2; 82948 ×5; 96376; 83036; 82150; 82550; 80076; 83735 ×2; 83880; 82140; 83605; 84145; C1769 ×2; C1887; C1894 ×3; C1725; C1874; C1760 ×2; C1761; C1753; Q9965 ×4; G0378 ×24; J3490 ×5; J3010; J7030; J1644 ×3; J2250; J0583 ×2; J1171; Q9967 ×2; A4215; A4223 ×3; A4222; A4221; A4663; A4216; A4606; C9600; J3475; 96360; 96361; 96365